=== PATIENT | male | born 1950 | race Caucasian/White ===

== ENCOUNTER → 2017-07-21 | Outpatient (CLI) | payer MEDICARE, BC ==
--- NOTE | 2017-07-21 16:59 | KCIC ---
Ankle brachial indices HISTORY: Hypertension, diabetes COMPARISON: None FINDINGS: Ankle brachial indices were obtained. Right was 1.0, left 0.97. However technologist reports arteries were noncompressible and therefore findings may be artificially elevated. Right posterior tibial artery could not be visualized. Right dorsalis pedis artery PSV was 56 cm/sec with a biphasic waveform. There are monophasic waveforms of the left posterior tibial artery and dorsalis pedis artery. Left posterior tibial artery PSV was 33 cm/sec, dorsalis pedis artery 40 cm/sec. There is prominent plaque of the visualized dorsalis pedis arteries bilaterally and also the left posterior tibial artery. IMPRESSION: 1. Ankle brachial indices are considered within normal limits although may be artificially elevated, reported noncompressibility of the arteries. No demonstrable flow could be seen in the right posterior tibial artery. There is prominent plaque of the visualized distal arteries, also abnormal monophasic waveforms on the left. Entirety of the lower extremity arteries were not evaluated. Electronically signed by: Shahid Ayala MD (07/21/2017 4:56 PM) [id number]
== END | disposition home or self-care (01) ==
LOC: KCIC US 11:48
PROVIDERS: ATTEND Family Medicine
DX: I10 Essential (primary) hypertension (principal); E11.9 Type 2 diabetes mellitus without complications; I70.298 Other atherosclerosis of native arteries of extremities, other extremity
CPT/HCPCS: 93922

== ENCOUNTER 2018-02-04 09:23 | Outpatient (CLI) | payer MEDICARE ==
[~2018-02-04 09:23] MED LIST: IODIXANOL 320 MG/ML 100 ML VIAL.; LIDOCAINE 2% 20 ML VIAL.
[2018-02-04 09:58] LABS: HEMATOCRIT 48.5 % (39.0-53.0); HEMOGLOBIN 16.3 g/dL (13.0-17.5); MEAN CORPUSCULAR HEMOGLOBIN 31 pg (25-35); MEAN CORPUSCULAR HGB CONC 34 g/dL (31-37); MEAN CORPUSCULAR VOLUME 92 fL (79-100); PLATELET COUNT 255 x10^3/uL (140-400); RED BLOOD COUNT 5.25 x10^6/uL (4.30-5.70); RED CELL DISTRIBUTION WIDTH 14.2 % (11.5-14.5); WHITE BLOOD COUNT 12.4 x10^3/uL (4.0-11.0)
[2018-02-04 10:08] LABS: ANION GAP 9 (6-14); BLOOD UREA NITROGEN 32 mg/dL (8-26); CALCIUM 9.5 mg/dL (8.5-10.1); CARBON DIOXIDE 24 mmol/L (21-32); CHLORIDE 107 mmol/L (98-107); CREATININE 1.2 mg/dL (0.7-1.3); GFR 60.2; GLUCOSE 156 mg/dL (70-99); POTASSIUM 4.2 mmol/L (3.5-5.1); SODIUM 140 mmol/L (136-145)
[2018-02-04 10:22] LABS: PROTHROMBIN TIME PATIENT 12.4 SEC (11.7-14.0)
[2018-02-04] MEDS ORDERED: HEPARIN for IV BOLUS 10,000 UNIT/10 ML VIAL. (11:47)
[2018-02-04] MEDS ORDERED: MIDAZOLAM HCL/PF 2 MG/2 ML VIAL. (11:47)
[2018-02-04] MEDS ORDERED: fentaNYL PF VIAL 100 MCG/2 ML VIAL (11:47)
[2018-02-04] MEDS: LIDOCAINE 2% 20 ML VIAL. IJ (12:15)
[2018-02-04] MEDS: IODIXANOL 320 MG/ML 100 ML VIAL. IART (12:32)
[2018-02-04] MEDS: fentaNYL PF VIAL 100 MCG/2 ML VIAL IV (12:33)
[2018-02-04] MEDS: MIDAZOLAM HCL/PF 2 MG/2 ML VIAL. IV (12:33)
[2018-02-04] MEDS ORDERED: IV 1/2 NORMAL SALINE 1,000 ML IV (12:55)
== END 2018-02-04 14:30 | disposition home or self-care (01) ==
LOC: CCL 09:23
DX: I70.213 Atherosclerosis of native arteries of extremities with intermittent claudication, bilateral legs (principal); I70.92 Chronic total occlusion of artery of the extremities; I10 Essential (primary) hypertension; E11.9 Type 2 diabetes mellitus without complications; Z98.890 Other specified postprocedural states; Z79.899 Other long term (current) drug therapy
CPT/HCPCS: 36245; 36415; 75630; 80048; 85027; 85610; 99152; 99153; C1713; C1769; C1892; G0269; J1644; J2001; J2250; J3010